=== PATIENT | female | born 1965 | race Caucasian/White ===

== ENCOUNTER 2020-03-03 02:01 | Emergency (ER) | payer MEDICARE, MEDICAID ==
[~2020-03-03] VITALS: Ht 157.5 cm; Wt 75.0 kg
[~2020-03-03 02:01] MED LIST: ALBU8.5H5 INH; CARI250T PO; HYDR-36 PO; METH40TA2 PO; SERT100T PO; [UNRECOGNIZED DRUG - CODE] EACHEYE
[2020-03-03] MEDS ORDERED: PANTOPRAZOLE 40 MG IV IVPush ONE (02:30)
[2020-03-03] MEDS ORDERED: MAALOX/HYOSCYAMINE/LIDOCAINE 45 ML BTL PO ONE (02:30)
[2020-03-03] MEDS ORDERED: SODIUM CHLORIDE 0.9% 1,000ML IVBOLUS ONE (02:30)
[2020-03-03] MEDS ORDERED: METOCLOPRAMIDE 5 MG/ML, 2ML IVPush ONE (02:30)
[2020-03-03 02:40] LABS: BASOPHILS # (AUTO) 0.02 x10^3/uL (0-0.1); BASOPHILS % (AUTO) 0 % (0-1); EOSINOPHILS # (AUTO) 0.04 x10^3/uL (0-0.4); EOSINOPHILS % (AUTO) 0 % (1-7); LYMPHOCYTES # (AUTO) 1.94 x10^3/uL (1-3.4); LYMPHOCYTES % (AUTO) 18 % (22-44); MD NO; MEAN CORPUSCULAR HEMOGLOBIN 30.3 pg (27.0-34.8); MEAN CORPUSCULAR HGB CONC 33.7 g/dL (32.4-35.8); MEAN CORPUSCULAR VOLUME 89.7 fL (80-100); MEAN PLATELET VOLUME 9.6 fL (7.4-10.4); MONOCYTES # (AUTO) 0.69 x10^3/uL (0.2-0.8); MONOCYTES % (AUTO) 6 % (2-9); NEUTROPHILS # (AUTO) 8.08 x10^3/uL (1.8-6.8); NEUTROPHILS % (AUTO) 75 % (42-75); PLATELET COUNT 330 x10^3/uL (130-400); RED BLOOD COUNT 5.31 x10^6/uL (3.82-5.3); RED CELL DISTRIBUTION WIDTH 13.6 % (9.6-15.2)
[2020-03-03] MEDS ORDERED: MAALOX/HYOSCYAMINE/LIDOCAINE 45 ML BTL ONE (02:40)
[2020-03-03] MEDS ORDERED: PANTOPRAZOLE 40 MG IV ONE (02:40)
[2020-03-03] MEDS ORDERED: METOCLOPRAMIDE 5 MG/ML, 2ML ONE (02:40)
--- NOTE | 2020-03-03 02:50 | NUR ---
PT HER FOR N/V WITH BLOOD IN VOMIT SINCE YESTERDAY. PIV PLACED AND BLOOD DRAWN. FLUIDS RUNNING AND PT MEDICATED. VSS. CALL LIGHT IN REACH.
[2020-03-03 02:53] LABS: ALANINE AMINOTRANSFERASE 21 U/L (12-78); ALBUMIN 4.2 g/dL (3.4-5.0); ANION GAP 11 mmol/L (5-15); CALCIUM 12.8 mg/dL (8.5-10.1); CHLORIDE 101 mmol/L (98-107); CREATININE 1.08 mg/dL (0.55-1.02)
[2020-03-03 02:55] LABS: ALKALINE PHOSPHATASE 94 U/L (45-117); BILIRUBIN,TOTAL 0.8 mg/dL (0.2-1.0); TOTAL PROTEIN 8.6 g/dL (6.4-8.2)
[2020-03-03 03:15] VITALS: BP 130/86
--- NOTE | 2020-03-03 03:28 | NUR ---
PT GIVEN GI COCKTAIL AND IS TOLERATING WELL. PT HAS NO NEEDS AT THIS TIME. VSS, CALL LIGHT IN REACH.
--- NOTE | 2020-03-03 04:25 | NUR ---
Patient given discharge instructions and they have confirmed that they understand the instructions. Patient ambulatory with steady gait.
== END 2020-03-03 04:50 | disposition home or self-care (01) ==
LOC: ED 03:45
DX: K29.00 Acute gastritis without bleeding (principal); R11.2 Nausea with vomiting, unspecified; R19.7 Diarrhea, unspecified; R00.0 Tachycardia, unspecified; J45.909 Unspecified asthma, uncomplicated
CPT/HCPCS: 36415; 80053; 83690; 85025; 96361; 96374; 96375; 99284; C9113; J2765; J7030

== ENCOUNTER 2020-06-24 11:01 | Emergency (ER) | payer MEDICARE, MEDICAID ==
[~2020-06-24] VITALS: Ht 157.5 cm; Wt 79.0 kg
[~2020-06-24 11:01] MED LIST changes: +HYDR-3246 PO; -HYDR-36 PO
--- NOTE | 2020-06-24 11:22 | NUR ---
PATIENT HERE WITH CHIEF C/O MARTINE[place] AND COUGH X1 DAYS. PATIENT REPORTS SHE IS COUGHING UP LOTS OF PHLEGM. COUGH WAS WORSE THIS MORNING WHEN PATIENT WOKE UP. O2 SATURATION IS 97% RA, NO APPARENT SIGNS OF DISTRESS.
[2020-06-24] MEDS ORDERED: GABA300C PO (11:28)
[2020-06-24 12:17] LABS: BASOPHILS # (AUTO) 0.03 x10^3/uL (0-0.1); BASOPHILS % (AUTO) 1 % (0-1); EOSINOPHILS # (AUTO) 0.09 x10^3/uL (0-0.4); EOSINOPHILS % (AUTO) 2 % (1-7); LYMPHOCYTES # (AUTO) 1.58 x10^3/uL (1-3.4); LYMPHOCYTES % (AUTO) 32 % (22-44); MD NO; MEAN CORPUSCULAR HEMOGLOBIN 30.5 pg (27.0-34.8); MEAN CORPUSCULAR HGB CONC 33.6 g/dL (32.4-35.8); MEAN CORPUSCULAR VOLUME 90.7 fL (80-100); MEAN PLATELET VOLUME 8.6 fL (7.4-10.4); MONOCYTES # (AUTO) 0.45 x10^3/uL (0.2-0.8); MONOCYTES % (AUTO) 9 % (2-9); NEUTROPHILS % (AUTO) 57 % (42-75); PLATELET COUNT 315 x10^3/uL (130-400); RED BLOOD COUNT 4.78 x10^6/uL (3.82-5.3); RED CELL DISTRIBUTION WIDTH 12.9 % (9.6-15.2)
[2020-06-24 12:30] LABS: ALANINE AMINOTRANSFERASE 19 U/L (12-78); ANION GAP 8 mmol/L (5-15); CALCIUM 9.3 mg/dL (8.5-10.1); CHLORIDE 109 mmol/L (98-107)
[2020-06-24 12:34] LABS: ALKALINE PHOSPHATASE 82 U/L (45-117); BILIRUBIN,TOTAL 0.6 mg/dL (0.2-1.0); TOTAL PROTEIN 7.5 g/dL (6.4-8.2); TROPONIN I < 0.015 ng/mL (0.000-0.045)
--- NOTE | 2020-06-24 12:51 | NUR ---
PATIENT RESTING IN [place], PATIENT CONNECTED TO CLINICAL PHARMACY SPECIALIST, CALL LIGHT WITHIN REACH, SIDE RAILS UP X2, NO FURTHER NEEDS AT THIS TIME.
[2020-06-24 13:35] VITALS: BP 124/90
--- NOTE | 2020-06-24 13:36 | NUR ---
Discharge instructions reviewed.
== END 2020-06-24 14:18 | disposition home or self-care (01) ==
LOC: ED 12:10
DX: R06.00 Dyspnea, unspecified (principal); R05 Cough; Z20.828 Contact with and (suspected) exposure to other viral communicable diseases; R07.89 Other chest pain; R51 Headache; J45.909 Unspecified asthma, uncomplicated; R94.31 Abnormal electrocardiogram [ECG] [EKG]
CPT/HCPCS: 36415; 71045; 80053; 83880; 84484; 85025; 87635; 93005; 99285